=== PATIENT | female | born 1990 | race Caucasian/White ===

== ENCOUNTER 2016-07-31 19:44 | Inpatient (IN) | payer MEDICAID ==
[~2016-07-31] VITALS: Ht 162.6 cm; Wt 88.0 kg
[~2016-07-31 19:44] MED LIST: ACYC400T PO; AMOX500C PO; PREN1CAP7 PO; RANI150T PO
[2016-07-31] MEDS ORDERED: LACTATED RINGER'S 1000 ML INJ 1,000 ML IV PRN (20:41)
--- NOTE | 2016-07-31 20:41 | PD ---
HPI Chief Complaint evaluation for labor Date Seen: Jul 31, 2016 Time Seen: 20:30 Travel History International Travel<30 Days: No Contact w/Intl Traveler<30Days: No Known Affected Area: No History of Present Illness HPI This is a 25y/o at 40w3d who presents to the [facility] for evaluation of labor. Pt states she was 5cm dilated in the office and has been ambulating since. She denies vaginal bleeding or leakage of fluid with reports of active movements. care at [facility], complicated by: 1. h/o drug abuse, clean for 4 years 2. Hep C, no viral load noted in records, labs done at [facility] per pt, will draw today on admission 3. GBS + 4. h/o genital herpes, last outbreak in last on Acyclovir since 36w 5. ? low platelets, at 28w no value seen in record but it was check serially, cbc on admission Para: 1 : 2 History Past Medical History Narrative Medical H/o IV drug abuse H/o hepatitis C H/o genital herpes Obstetric History Obstetric History 04/09/14 39w 7lb3oz Male, epidural "Bart" Past Surgical History Surgical History: No Previous Surgery Family History Family History: Negative Social History Alcohol Use: No Tobacco Use: No Substance Abuse: Yes (in the past, clean for 4 years) Allergies-Medications (Allergen,Severity, Reaction): Coded Allergies: No Known Allergies (Unverified , 07/31/16) Home Meds Active Scripts Acyclovir 400 Mg [id number] Mg PO BID #60 TAB Ref 4 Prov:Mary Tse 06/26/16 Ranitidine 150 Mg [id number] Mg PO BID #60 TAB Ref 6 Prov:Mary Tse 05/11/16 Reported Medications W/O Vit A W/ Fe Fumar (Citranatal [place])27-1-260 Mg Cap1 Cap PO DAILY #30 CAP Ref 0 03/16/16 Discontinued Scripts Amoxicillin 500 Mg [id number] Mg PO TID #21 CAP Ref 0 Prov:Moises Iraheta MD 07/17/16 Review of Systems Except as stated in HPI: all other systems reviewed are Neg Physical Exam Narrative GENERAL: Well-nourished, well-developed patient. SKIN: Warm and dry. HEAD: Normocephalic and atraumatic. EYES: No scleral icterus. No injection or drainage. ENT: No nasal drainage noted. Mucous membranes pink. Airway patent. NECK: Supple, trachea midline. No JVD. CARDIOVASCULAR: Regular rate and rhythm without murmurs, gallops, or rubs. RESPIRATORY: Breath sounds equal bilaterally. No accessory muscle use. BREASTS: Bilateral exam showed no masses , no retractions, no nipple discharge. ABDOMEN/GI: Abdomen soft, non-tender, bowel sounds present, no rebound, no guarding GENITOURINARY: VE: 5+cm, bulging bag, per RN FHT's: Overall Cat I tracing, 1 late deceleration, 2 m in duration to nicole of 80bpm with quick recovery to baseline spontaneously Cont: some irritability EXTREMITIES: No cyanosis or edema. BACK: Nontender without obvious deformity. No CVA tenderness. NEUROLOGICAL: Awake and alert. Motor and sensory grossly within normal limits. Five out of 5 muscle strength in all muscle groups. Normal speech. Data Data Vital Signs Reviewed: Yes [facility] Medical Record Reviewed: Yes Interpretation(s) care at [facility], complicated by: 1. h/o drug abuse, clean for 4 years 2. Hep C, no viral load noted in records, labs done at [facility] per pt, will draw today on admission 3. GBS + 4. h/o genital herpes, last outbreak in last on Acyclovir since 36w 5. ? low platelets, at 28w no value seen in record but it was check serially, cbc on admission Procedure Narrative VE: 5+cm, bulging bag, per RN FHT's: Overall Cat I tracing, 1 late deceleration, 2 m in duration to nicole of 80bpm with quick recovery to baseline spontaneously Cont: some irritability Diagnosis Diagnosis: Primary Impression: Hx of herpes simplex type 2 infection Additional Impression: Chronic hepatitis C affecting antepartum care of mother Qualified Code: O98.413 - Chronic hepatitis C affecting antepartum care of mother, third trimester Condition: Good Montserrat Ivan MD Jul 31, 2016 20:41
[2016-07-31] MEDS ORDERED: OXYTOCIN 30 UNITS-500ML PREMIX 500 ML IV ONE (20:45)
[2016-07-31] MEDS ORDERED: PENICILLIN G POTASSIUM INJ 5,000,000 UNITS in SODIUM CHLORIDE 0.9% INJ 100 ML IV ONE (20:45)
[2016-07-31] MEDS ORDERED: MINERAL OIL 10 ML VIAL TOPICAL PRN (20:45)
[2016-07-31] MEDS ORDERED: SODIUM CHLORID 0.9% 500 ML INJ 500 ML IV PRN (20:45)
[2016-07-31] MEDS ORDERED: LIDOCAINE HCL 1% 50 ML VIAL INFIL PRN (20:45)
[2016-07-31] MEDS ORDERED: CITRIC ACID-SODIUM CITRATE LIQ 30 ML UDC PO SCH (20:45)
[2016-07-31] MEDS ORDERED: LIDOCAINE HCL 1% 50 ML VIAL I-DERMAL PRN (20:45)
--- NOTE | 2016-07-31 20:53 | HHI.HP ---
HPI Chief Complaint Evaluation of labor Date Seen: Jul 31, 2016 Time Seen: 20:47 Travel History International Travel<30 Days: No Contact w/Intl Traveler<30Days: No Known Affected Area: No History of Present Illness HPI This is a 25y/o at 40w3d who presents to the [facility] for evaluation of labor. Pt states she was 5cm dilated in the office and has been ambulating since. She denies vaginal bleeding or leakage of fluid with reports of active movements. care at [facility], complicated by: 1. h/o drug abuse, clean for 4 years 2. Hep C, no viral load noted in records, labs done at [facility] per pt, will draw today on admission 3. GBS + 4. h/o genital herpes, last outbreak in last on Acyclovir since 36w 5. ? low platelets, at 28w no value seen in record but it was check serially, cbc on admission Para: 1 : 2 History Past Medical History Narrative Medical H/o Iv drug abuse, clean for 4 years, was told she was Hep C positive H/o genital herpes, last outbreak in her last Obstetric History Obstetric History 04/09/14 39w 7lb3oz Male, epidural "Bart" Past Surgical History Surgical History: No Previous Surgery Family History Family History: Negative Social History Alcohol Use: No Tobacco Use: No Substance Abuse: Yes (h/o, clean for 4 years) Allergies-Medications (Allergen,Severity, Reaction): Coded Allergies: No Known Allergies (Unverified , 07/31/16) Home Meds Active Scripts Acyclovir 400 Mg [id number] Mg PO BID #60 TAB Ref 4 Prov:Mary Tse 06/26/16 Ranitidine 150 Mg [id number] Mg PO BID #60 TAB Ref 6 Prov:Mary TseP 05/11/16 Reported Medications W/O Vit A W/ Fe Fumar (Citranatal [place])27-1-260 Mg Cap1 Cap PO DAILY #30 CAP Ref 0 03/16/16 Discontinued Scripts Amoxicillin 500 Mg [id number] Mg PO TID #21 CAP Ref 0 Prov:Moises Iraheta MD 07/17/16 Review of Systems Except as stated in HPI: all other systems reviewed are Neg Physical Exam Narrative GENERAL: Well-nourished, well-developed patient. SKIN: Warm and dry. HEAD: Normocephalic and atraumatic. EYES: No scleral icterus. No injection or drainage. ENT: No nasal drainage noted. Mucous membranes pink. Airway patent. NECK: Supple, trachea midline. No JVD. CARDIOVASCULAR: Regular rate and rhythm without murmurs, gallops, or rubs. RESPIRATORY: Breath sounds equal bilaterally. No accessory muscle use. BREASTS: Bilateral exam showed no masses , no retractions, no nipple discharge. ABD: soft, nt/nd, gravid VE: 5+cm, bulging bag, per RN FHT's: Overall Cat I tracing, 1 late deceleration, 2 m in duration to nicole of 80bpm with quick recovery to baseline spontaneously Cont: some irritability EXTREMITIES: No cyanosis or edema. BACK: Nontender without obvious deformity. No CVA tenderness. NEUROLOGICAL: Awake and alert. Motor and sensory grossly within normal limits. Five out of 5 muscle strength in all muscle groups. Normal speech. Data Data Vital Signs Reviewed: Yes Orders Ob (2e) Additional Admit Info (07/31/16 20:43) Admit To Inpatient (07/31/16 ) Code Status (07/31/16 20:41) Vital Signs (Adult) .Per protocol (07/31/16 20:41) Activity Oob Ad Gila (07/31/16 20:41) ^ Heart (07/31/16 20:41) ^ Amnioinfusion (07/31/16 20:41) Urinary Catheter Management .ONCE (07/31/16 20:41) Diet Npo (08/01/16 Breakfast) Lactated Ringer's 1000 Ml Inj (Lr 1000 M (07/31/16 20:41) Lactated Ringer's 1000 Ml Inj (Lr 1000 M (07/31/16 20:41) Sodium Chlorid 0.9% 500 Ml Inj (Ns 500 M (07/31/16 20:45) Sodium Chlor 0.9% 1000 Ml Inj (Ns 1000 M (07/31/16 21:01) Lidocaine 1% Inj (50 Ml) (Xylocaine 1% I (07/31/16 20:45) Citric Acid-Sodium Citrate Liq (Bicitra (07/31/16 20:45) Fentanyl Inj (Fentanyl Inj) (07/31/16 20:45) Fentanyl Inj (Fentanyl Inj) (07/31/16 20:45) Penicillin G Potassium Inj (Pfizerpen-G (07/31/16 20:45) Penicillin G Potassium Inj (Pfizerpen-G (08/01/16 00:45) Complete Blood Count With Diff (07/31/16 20:41) Hold Clot (07/31/16 20:41) Abo/Rh Blood Type (07/31/16 20:41) Urinalysis - C+S If Indicated (07/31/16 20:41) Resp Oxygen Non Rebreathe Mask (07/31/16 ) ^ Epidural / Intrathecal Infus (07/31/16 20:41) Oxytocin 30 Units-500ml Premix (Pitocin (07/31/16 20:45) Lidocaine 1% Inj (50 Ml) (Xylocaine 1% I (07/31/16 20:45) Light Mineral Oil (Muri-Lube Oil) (07/31/16 20:45) Hepatitis C Ab,Igg (07/31/16 20:41) Hepatitis C Rna Quantitative (07/31/16 20:41) Ob/Psych Drug Screen, Urine (07/31/16 20:41) Inpatient Certification (07/31/16 ) Assessment/Plan Problem List: (1) Hx of herpes simplex type 2 infection (2) Chronic hepatitis C affecting antepartum care of mother Assessment and Plan 25y/o at 40w3d with favorable cervix and 1 late decelerations. -admit for augmentation of labor -GBS + for PCN per hospital protocol -overall reassuring fhr tracing -consider AROM after 2nd dosage of PCN -anticipate -epidural as desired Discharge Planning d/c home Attending Attestation I personally examined and admitted this patient. Montserrat Ivan MD Jul 31, 2016 20:53
[2016-07-31] MEDS ORDERED: SODIUM CHLOR 0.9% 1000 ML INJ 1,000 ML IV PRN (21:01)
[2016-07-31] MEDS: LACTATED RINGER'S 1000 ML INJ 1,000 ML IV SCH (21:45)
[2016-07-31 21:50] VITALS: BP 113/68; PULSE 75
[2016-07-31 21:56] VITALS: RESP 16
[2016-07-31 21:57] VITALS: TEMP 97.9
[2016-07-31 22:00] VITALS: BP 100/63; PULSE 71
[2016-07-31 22:19] LABS: AUTOMATED NEUTROPHIL # 6.5 TH/MM3 (1.8-7.7); BASOPHIL % 0.2 % (0.0-2.0); EOSINOPHIL # 0.1 TH/MM3 (0-0.4); EOSINOPHIL % 0.8 % (0.0-4.0); HEMATOCRIT 32.1 % (35.0-46.0); LYMPH % 23.9 % (9.0-44.0); LYMPHOCYTE # 2.2 TH/MM3 (1.0-4.8); MEAN CELL VOLUME 89.8 FL (80.0-100.0); MEAN CORPUSCULAR HEMOGLOBIN 31.2 PG (27.0-34.0); MEAN CORPUSCULAR HGB CONC 34.8 % (32.0-36.0); MONO % 4.8 % (0.0-8.0); NEUT % 70.3 % (16.0-70.0); PLATELET COUNT 88 TH/MM3 (150-450); RED BLOOD COUNT 3.57 MIL/MM3 (4.00-5.30); RED CELL DISTRIBUTION WIDTH 13.7 % (11.6-17.2); WHITE BLOOD COUNT 9.2 TH/MM3 (4.0-11.0)
[2016-07-31 22:21] LABS: HEMO FLAGS AUTO DIFF
[2016-07-31 22:24] LABS: AMPHETAMINE, URINE NEG (NEG); BACTERIA, URINE RARE /hpf; BARBITURATES, URINE NEG (NEG); BLOOD, URINE LARGE (NEG); COCAINE, URINE NEG (NEG); COMMENT (UR) CULTURE INDICATED; CULTURE IF INDICATED CULTURE INDICATED; GLUCOSE,URINE NEG (NEG); HYALINE CAST, URINE 1 /lpf (RARE); KETONE, URINE NEG (NEG); NITRITE,URINE NEG (NEG); SQUAMOUS EPITHELIAL CELL URINE 8 /hpf (0-5); URINE COLOR YELLOW (YELLW/STRAW)
[2016-07-31 22:48] LABS: PLATELET ESTIMATE SMEAR LOW (NORMAL); PLATELET MORPHOLOGY GIANT (NORMAL)
[2016-07-31 22:49] LABS: SCAN/DIFF AUTO DIFF CONFIRMED
[2016-08-01] VITALS (19 sets, daily range): BP systolic 92–121; BP diastolic 49–79; PULSE 66–101; RESP 16–20; TEMP 97.7–98.3
[2016-08-01] MEDS: PENICILLIN G POTASSIUM INJ 2,500,000 UNITS in SODIUM CHLORIDE 0.9% INJ 100 ML IV SCH ×3 (02:15→09:59)
[2016-08-01] MEDS: LACTATED RINGER'S 1000 ML INJ 1,000 ML IV SCH (04:41)
--- NOTE | 2016-08-01 07:23 | PD.LABORPN ---
Subjective Subjective This is a 25y/o at 40w4d who was admitted last night for augmentation of labor due to advanced cervical change and a 2 minute late deceleration with nicole to 80bmp. On admission her platelet count was 88k stat labs repeated now. Hep C labs still pending from admission, will try to obtain from [facility]. Overnight pt received 2 doses of PCN. Tracing was reactive/reassuring Cat I with moderate variability with occasional decelerations about 2 minutes in duration with spontaneous recovery to baseline. care at [facility], complicated by: 1. h/o drug abuse, clean for 4 years, negative urine toxicology on admission 2. Hep C, no viral load noted in records, labs done at [facility] per pt, labs still pending from admission 3. GBS + 4. h/o genital herpes, last outbreak in last on Acyclovir since 36w 5. ? low platelets, at 28w no value seen in record but it was check serially, cbc on 28k Objective Vital Signs Vital Signs Date Time Temp Pulse Resp B/P Pulse Ox O2 Delivery O2 Flow Rate FiO2 08/01/16 07:13 66 17 121/79 08/01/16 07:12 98.1 08/01/16 05:51 16 08/01/16 05:50 72 105/54 08/01/16 05:50 97.9 08/01/16 02:00 97.7 08/01/16 00:46 76 107/55 Objective Pelvic Exam: VE: 6/70/-1, AROM Clear FHT's:Cat I reactive/reassuring, moderate variability with accels, few prolonged decelerations lasting 2 minutes with spontaneous recovery to baseline Assessment/Plan Problem List: (1) Hx of herpes simplex type 2 infection (2) Chronic hepatitis C affecting antepartum care of mother Assessment and Plan 25y/o at 40w4d admitted for augmentation of labor due to advanced cervical dilation and 2 minute deceleration. Care complicated by: 1,. h/o drug abuse, clean for 4 years, negative urine toxicology on admission 2. Hep C, no viral load noted in records, labs done at [facility] per pt, labs still pending from admission; will try to obtain labs from her PMD's office today 3. GBS +, s/p adequate treatment 4. h/o genital herpes, last outbreak in last on Acyclovir since 36w, no lesions on admission 5. thrombocytopenia, 88k on admission, repeat labs pending this morning Montserrat Ivan MD Aug 01, 2016 07:23
[2016-08-01 07:33] LABS: HEMATOCRIT 31.7 % (35.0-46.0); MEAN CELL VOLUME 90.8 FL (80.0-100.0); MEAN CORPUSCULAR HEMOGLOBIN 31.4 PG (27.0-34.0); MEAN CORPUSCULAR HGB CONC 34.6 % (32.0-36.0); PLATELET COUNT 72 TH/MM3 (150-450); RED CELL DISTRIBUTION WIDTH 13.6 % (11.6-17.2); WHITE BLOOD COUNT 9.1 TH/MM3 (4.0-11.0)
[2016-08-01 07:37] LABS: REVIEW FLAG FINAL
--- NOTE | 2016-08-01 09:37 | PD.LABORPN ---
Subjective Subjective Mrs. Macario was seen this morning; she reports increasing pressure with contractions overnight. Patient otherwise does not report complaints at this time. Interval History: Fetus with 2 min deceleration to 90 BPM at approximately 0600 08/01; given 500 cc bolus and placed in left lateral position. AROM at ~0700; clear fluid, odorless (Yared Yepez MD R2) Objective Vital Signs Vital Signs Date Time Temp Pulse Resp B/P Pulse Ox O2 Delivery O2 Flow Rate FiO2 08/01/16 08:30 74 114/70 08/01/16 07:13 66 17 121/79 08/01/16 07:12 98.1 08/01/16 05:51 16 08/01/16 05:50 72 105/54 08/01/16 05:50 97.9 08/01/16 02:00 97.7 Objective Pelvic Exam: Performed by nursing staff at 0908/01 Cervix: Dilatation: 8 cm Effacement: 90% Station: 0 Presentation: Vertex Membranes: ruptured Uterine Contractions: q2min FHT's: Category: 1 -2 Baseline: 120 Reactive: Y Variability: Mod Decels: Occ decels lasting ~2 min (Yared Yepez MD R2) Assessment/Plan Problem List: (1) Hx of herpes simplex type 2 infection (2) Chronic hepatitis C affecting antepartum care of mother Assessment and Plan 25y/o at 40w4d admitted for augmentation of labor due to advanced cervical dilation and 2 minute deceleration. Care complicated by: 1,. h/o drug abuse, clean for 4 years, negative urine toxicology on admission 2. Hep C, no viral load noted in records, labs done at [facility] per pt, labs still pending from admission; will try to obtain labs from her PMD's office 3. GBS + 4. h/o genital herpes, last outbreak in last on Acyclovir since 36w, no lesions on admission 5. thrombocytopenia, 88k on admission -> 72k (08/01) Cervix at 0915: 8/90/0 -Continue to monitor EFM -Continue GBS PPX (Yared Yepez MD R2) Assessment and Plan Agree with resident note. Continue expectant management. consider oxytocin. Anticipate . (Montserrat Ivan MD) Yared Yepez MD R2 Aug 01, 2016 09:37 Montserrat Ivan MD Aug 01, 2016 09:40
[2016-08-01] MEDS ORDERED: OXYTOCIN 30 UNITS-500ML PREMIX 500 ML ONE (10:06)
[2016-08-01] MEDS ORDERED: DOCUSATE SODIUM 50 MG/SENNA 8.6 MG TAB PO PRN (12:30)
[2016-08-01] MEDS ORDERED: ZOLPIDEM TARTRATE 5 MG TAB PO PRN (12:30)
[2016-08-01] MEDS ORDERED: oxyCODONE/ACETAMINOPHEN 5 MG/325 MG TAB PO PRN ×2 (12:30)
[2016-08-01] MEDS ORDERED: SODIUM CHLORIDE 0.9% FLUSH 10 ML FLUSH IV FLUSH PRN (12:30)
[2016-08-01] MEDS ORDERED: BENZOCAINE 20% TOPICAL SPRAY 60 ML CAN TOPICAL PRN (12:30)
[2016-08-01] MEDS ORDERED: ACETAMINOPHEN 325 MG TAB PO PRN (12:30)
[2016-08-01] MEDS ORDERED: ONDANSETRON ODT 4 MG TAB PO PRN (12:30)
[2016-08-01] MEDS ORDERED: WITCH HAZEL 50%/GLYCERIN 12.5% 40 PAD JAR TOPICAL PRN (12:30)
[2016-08-01] MEDS ORDERED: ALUMINUM/MAGNESIUM/SIMETH 30 ML CUP PO PRN (12:30)
--- NOTE | 2016-08-01 12:32 | PD.OB.DELI ---
Delivery Date: Aug 01, 2016 Anesthesia: None Episiotomy: None Vaginal Delivery: Spontaneous Presentation: Occiput anterior Nuchal Cord: None Delayed cord clamping (45 sec): Yes : Male One Minute : 8 Five Minute : 9 Weight: 3965 Care: Suctioned, Responded to stimulation, Blow-by O2 delivered Placenta: Spontaneous delivery Laceration: 1 deg (2 3-0 vicryl sutures placed perineal ) Repair: Vicryl interrupted Additional Information Time of delivery 1202 Delivery performed by Remington Tinoco with Dr. Kunz Repair by Dr. Yepez (Yared Yepez MD R2) Collaborating MD Zora Delivery was performed under my direct supervision (Columba Kunz MD) Yared Yepez MD R2 Aug 01, 2016 12:32 Columba Kunz MD Aug 01, 2016 13:19
[2016-08-01] MEDS: IBUPROFEN 600 MG TAB PO PRN ×2 (13:19→18:03)
[2016-08-01] MEDS ORDERED: MEASLES, MUMPS, RUBELLA VACCINE 0.5 ML VIAL SQ ONE (16:00)
[2016-08-01] MEDS ORDERED: DIPHTH/TETANUS/ACEL PERTUSSIS (BOOSTER) 0.5 ML VIAL/PFS IM ONE (16:00)
[2016-08-01] MEDS ORDERED: SODIUM CHLORIDE 0.9% FLUSH 10 ML FLUSH IV FLUSH SCH (21:00)
[2016-08-02] MEDS: IBUPROFEN 600 MG TAB PO PRN ×3 (00:53→18:23)
--- NOTE | 2016-08-02 08:02 | HHI.OB ---
Subjective Post Day: 1 Remarks Mrs. Macario is a 25 yo who is PPD 1 from (08/01 at 1202) Patient reports that she is doing well this morning. Patient reports light vaginal bleeding and mild abdominal pain. Patient reports mild soreness and urinating but denies dysuria. Patient reports that she has been breast-feeding well but has been bottle feeding as well. Patient able to ambulate. Patient passing gas but not having bowel movement. (Yared Yepez MD R2) Objective Vitals/I&O Vital Signs Date Time Temp Pulse Resp B/P Pulse Ox O2 Delivery O2 Flow Rate FiO2 08/01/16 21:14 98.3 74 20 106/59 08/01/16 16:20 98.3 69 16 110/64 08/01/16 13:31 67 105/59 08/01/16 13:16 73 100/54 08/01/16 13:00 66 109/62 08/01/16 13:00 18 08/01/16 12:45 18 08/01/16 12:45 72 108/60 08/01/16 12:30 98.1 08/01/16 12:30 101 92/51 08/01/16 12:30 18 08/01/16 12:15 84 110/60 08/01/16 12:06 89 118/49 08/01/16 11:30 97.8 08/01/16 10:50 18 08/01/16 10:36 89 102/58 08/01/16 09:30 97.8 08/01/16 08:30 74 114/70 Objective Remarks GENERAL: Well-nourished, well-developed patient. CARDIOVASCULAR: Regular rate and rhythm without murmurs. Normal perfusion RESPIRATORY: CTA B, normal rate ABDOMEN/GI: Abdomen soft, non-tender. Fundus: Firm, non-tender at umbilicus. GENITOURINARY: Light to moderate bleeding. EXTREMITIES: Symmetrical without edema; nontender Medications and IVs Current Medications Medications (Trade) Dose Ordered Sig/Chandrika Route Start Time Stop Time Status Last Admin (NS Flush) 2 ml BID IV FLUSH 08/01/16 21:00 08/01/16 13:44 (NS Flush) 2 ml UNSCH PRN IV FLUSH 08/01/16 12:30 (Tylenol) 650 mg Q4H PRN PO 08/01/16 12:30 (Motrin) 600 mg Q6H PRN PO 08/01/16 12:30 08/02/16 00:53 (Percocet 5-325 Mg) 1 tab Q4H PRN PO 08/01/16 12:30 (Percocet 5-325 Mg) 2 tab Q4H PRN PO 08/01/16 12:30 (Americaine 20% Top Spr) 1 spray Q4H PRN TOPICAL 08/01/16 12:30 08/01/16 18:02 (Tucks Pads) 1 applic QID PRN TOPICAL 08/01/16 12:30 08/01/16 18:02 (Pamela-Colace) 2 tab Q12H PRN PO 08/01/16 12:30 08/02/16 00:53 (Ambien) 5 mg HS PRN PO 08/01/16 12:30 (Mag-Al Plus Susp Liq) 15 ml Q8H PRN PO 08/01/16 12:30 (Zofran Odt) 4 mg Q6H PRN PO 08/01/16 12:30 (Yared Yepez MD R2) Assessment/Plan Problem List: (1) Hx of herpes simplex type 2 infection (2) Chronic hepatitis C affecting antepartum care of mother Assessment and Plan 25 yo who is PPD 1 from (08/01 at 1202) -Percocet and Motrin when necessary for pain control -Continue to monitor vital signs, quantity of vaginal bleeding, abdominal pain -Continue to encourage breast feeding -Continue to encourage ambulation -Stool softener for bowel movements -Discussed posthospital plans: Patient plans [facility] and we'll discuss control if desired further then Discharge Planning d/c home (Yared Yepez MD R2) Collaborating MD Comments Agree with management plans and continued care (Columba Kunz MD) Yared Yepez MD R2 Aug 02, 2016 08:02 Columba Kunz MD Aug 02, 2016 08:59
[2016-08-02 08:15] VITALS: BP 104/65; PULSE 61; RESP 18; TEMP 97.7
[2016-08-02 18:55] VITALS: BP 101/69; PULSE 62; RESP 18; TEMP 98.5
--- NOTE | 2016-08-03 07:39 | HHI.OB ---
Subjective Post Day: 2 Remarks AFVSS overnight. Doing well. Lochia - much reduced. She plans for both breast- feeding and formula. Appetite good. No nausea or vomiting. Positive flatus. No bowel movement. Ambulating well. Denies calf pain. No edema. Otherwise, she is doing well this morning and has no other complaints. Objective Vitals/I&O Vital Signs Date Time Temp Pulse Resp B/P Pulse Ox O2 Delivery O2 Flow Rate FiO2 08/02/16 18:55 62 18 101/69 08/02/16 18:55 98.5 08/02/16 08:15 61 104/65 08/02/16 08:15 97.7 18 Objective Remarks GENERAL: Well-nourished, well-developed patient. CARDIOVASCULAR: Regular rate and rhythm without murmurs. Normal perfusion RESPIRATORY: CTAB, normal rate ABDOMEN/GI: Abdomen soft, non-tender. Fundus: Firm, non-tender at umbilicus. GENITOURINARY: Light to moderate bleeding. EXTREMITIES: Symmetrical without edema; nontender Medications and IVs Current Medications Medications (Trade) Dose Ordered Sig/Chandrika Route Start Time Stop Time Status Last Admin (NS Flush) 2 ml BID IV FLUSH 08/01/16 21:00 08/01/16 13:44 (NS Flush) 2 ml UNSCH PRN IV FLUSH 08/01/16 12:30 (Tylenol) 650 mg Q4H PRN PO 08/01/16 12:30 (Motrin) 600 mg Q6H PRN PO 08/01/16 12:30 08/02/16 18:23 (Percocet 5-325 Mg) 1 tab Q4H PRN PO 08/01/16 12:30 (Percocet 5-325 Mg) 2 tab Q4H PRN PO 08/01/16 12:30 (Americaine 20% Top Spr) 1 spray Q4H PRN TOPICAL 08/01/16 12:30 08/01/16 18:02 (Tucks Pads) 1 applic QID PRN TOPICAL 08/01/16 12:30 08/01/16 18:02 (Pamela-Colace) 2 tab Q12H PRN PO 08/01/16 12:30 08/02/16 00:53 (Ambien) 5 mg HS PRN PO 08/01/16 12:30 (Mag-Al Plus Susp Liq) 15 ml Q8H PRN PO 08/01/16 12:30 (Zofran Odt) 4 mg Q6H PRN PO 08/01/16 12:30 Assessment/Plan Problem List: (1) Hx of herpes simplex type 2 infection (2) Chronic hepatitis C affecting antepartum care of mother Assessment and Plan 25 yo who is PPD 2 from (08/01 at 1202) -Percocet and Motrin when necessary for pain control -Continue to encourage breast feeding -Continue to encourage ambulation -Stool softener for bowel movements -Discussed posthospital plans: Patient plans [facility] -Brit control - Pt will continue OCPs that she gets from [facility] - they work well for her -Discussed with Dr. Gibbons Discharge Planning Discharge home today Negin Bird MD R1 Aug 03, 2016 07:39
[2016-08-03] MEDS ORDERED: IBUP-232 PO (07:40)
--- NOTE | 2016-08-03 07:42 | HHI.DCPOC ---
Discharge Care Plan Diagnosis: (1) Hx of herpes simplex type 2 infection (2) care and examination Report Symptoms to Your Doctor -Temperate above 100.5 degrees -Redness, of incision or excessive or foul smelling drainage -Unusual pain or calf pain -Increased vaginal bleeding -Painful or difficulty urinating -Feelings of extreme sadness or anxiety after 2 weeks Goals to Promote Your Health * To prevent worsening of your condition and complications * To maintain your health at the optimal level Directions to Meet Your Goals Take your medications as prescribed Follow your dietary instruction Follow activity as directed Ensure plenty of rest for recovery Drink fluids for hydration Keep your appointments as scheduled Take your immunizations and boosters as scheduled If your symptoms worsen call your PCP, if no PCP go to Urgent Care Center or Emergency Room Smoking is Dangerous to Your Health. Avoid second hand smoke Call the 24-hour crisis hotline for domestic abuse at Negin Bird MD R1 Aug 03, 2016 07:41
[2016-08-03 08:00] VITALS: BP 104/64; PULSE 62; RESP 18; TEMP 98.3
[2016-08-03] MEDS: IBUPROFEN 600 MG TAB PO PRN (09:58)
[2016-08-03 19:55] LABS: HCV RNA PCR IU/ML LESS THAN 15 IU/mL (()); HCV RNA PCR LOGIU/ML LESS THAN 1.18 (())
[2016-08-04 12:17] LABS: BATH SALTS (MDPV) UR NEG (NEG); ECSTASY (MDMA) UR NEG (NEG); HEROIN (6-ACETYLMORPHINE) UR NEG (NEG); K2 SPICE UR NEG (NEG); OBMETHADONE UR NEG (NEG); OXYCODONE (PERCODAN) NEG (NEG); PHENCYCLIDINE URINE NEG (NEG)
[2016-09-14] MEDS ORDERED: [UNRECOGNIZED DRUG - CODE] PO (09:36)
[2016-10-10] MEDS ORDERED: METR500T10 PO (15:19)
[2016-10-20] MEDS ORDERED: CITA20TA4 PO (10:15)
[2016-10-23] MEDS ORDERED: VIST25CA PO (13:37)
[2016-10-23] MEDS ORDERED: PREN1CAP7 PO (13:37)
== END 2016-08-03 13:00 | disposition home or self-care (01) | DRG 774 ==
LOC: HOBED 19:44 → H2EA 20:44 → H1EA 08-01 15:13
PROVIDERS: ADMIT Obstetrics & Gynecology; ATTEND Obstetrics & Gynecology
PROC: 10E0XZZ Delivery of Products of Conception, External Approach (ICD-10-PCS; principal; 2016-08-01)
PROC: 0HQ9XZZ Repair Perineum Skin, External Approach (ICD-10-PCS; 2016-08-01)
PROC: 10907ZC Drainage of Amniotic Fluid, Therapeutic from Products of Conception, Via Natural or Artificial Opening (ICD-10-PCS; 2016-08-01)
DX: O98.42 Viral hepatitis complicating childbirth (principal); B18.2 Chronic viral hepatitis C; O99.12 Other diseases of the blood and blood-forming organs and certain disorders involving the immune mechanism complicating childbirth; D69.6 Thrombocytopenia, unspecified; O99.824 Streptococcus B carrier state complicating childbirth; O76 Abnormality in fetal heart rate and rhythm complicating labor and delivery; O70.0 First degree perineal laceration during delivery; Z37.0 Single live birth; Z3A.40 40 weeks gestation of pregnancy
CPT/HCPCS: 59025; 80307; 81001; 85025; 85027; 86803; 86900; 86901; 87086; 87522; 90715; 99285; G0481; J2540; J2590; J3010; J7120

== ENCOUNTER 2016-08-15 16:23 | Emergency (ER) | payer MEDICAID ==
[~2016-08-15] VITALS: Ht 162.6 cm; Wt 78.0 kg
[~2016-08-15 16:23] MED LIST changes: -AMOX500C PO; +IBUP-232 PO
[2016-08-15 16:25] VITALS: BP 114/74; PULSE 60; RESP 16; TEMP 98.8; O2SAT 100
--- NOTE | 2016-08-15 16:38 | PD ---
Physical Exam Time Seen by Provider: 16:35 Narrative 25 year old female presents to ED for evaluation of LLQ abdominal pain. Pt is 2 weeks post vaginal delivery. No N/V/D. Normal voids without burning, frequency, or urgency. No fever or chills. Pain is constant dull, with intermittent sharp stabbing pains. Echo Milner follows her outpatient at [facility]. Dr. Kunz delivered her baby. She states she is otherwise well. Data Data Last Documented VS Vital Signs Date Time Temp Pulse Resp B/P Pulse Ox O2 Delivery O2 Flow Rate FiO2 08/15/16 16:25 98.8 60 16 114/74 100 Room Air [facility] Medical Record Reviewed: Yes Supervised Visit with AFSHAN: No Narrative Course 25 year old female presents to ED for evaluation of LLQ abdominal pain. Appears without distress. VSS Condition: Stable Raysa Rincon Aug 15, 2016 16:38
--- NOTE | 2016-08-15 17:21 | PD ---
HPI Chief Complaint: Abdominal Pain Time Seen by Provider: 17:20 Travel History International Travel<30 days: No Contact w/Intl Traveler<30days: No Traveled to known affect area: No History of Present Illness HPI Patient 25-year-old female 2 weeks from standard vaginal delivery presents with sharp suprapubic and left lower quadrant sharp abdominal pain particularly when she sits upright. Patient states pain started approximately week ago and has been gradually worsening. Patient denies any dysuria. She does endorse some nausea as well as some mild diarrhea. States it did burn at the end of her urine stream recently. Denies any fever. States her lochia is gradually decreasing and she does not express any foul smell. She has not yet discussed with her [employer]. [facility] Social History Alcohol Use: No Tobacco Use: No Allergies-Medications (Allergen,Severity, Reaction): Coded Allergies: No Known Allergies (Unverified , 08/15/16) Reported Meds & Prescriptions Reported Meds & Active Scripts Active Ibuprofen 600 Mg Tab 600 Mg PO Q6H PRN Acyclovir 400 Mg Tab 400 Mg PO BID Ranitidine (Ranitidine HCl) 150 Mg Tab 150 Mg PO BID Reported Citranatal [place] ( W/O Vit A W/ Fe Fumar) 27-1-260 Mg Cap 1 Cap PO DAILY Review of Systems Except as stated in HPI: all other systems reviewed are Neg Physical Exam Narrative GENERAL: Well-developed well-nourished no apparent distress. SKIN: Focused skin assessment warm/dry. HEAD: Atraumatic. Normocephalic. EYES: Pupils equal and round. No scleral icterus. No injection or drainage. ENT: No nasal bleeding or discharge. Mucous membranes pink and moist. NECK: Trachea midline. No JVD. CARDIOVASCULAR: Regular rate and rhythm. No murmur appreciated. RESPIRATORY: No accessory muscle use. Clear to auscultation. Breath sounds equal bilaterally. GASTROINTESTINAL: Abdomen soft, non-tender, nondistended. Hepatic and splenic margins not palpable. GENITOURINARY: Minimal amount of lochia, very minimal uterine tenderness, no adnexal tenderness. No vaginal bleeding. MUSCULOSKELETAL: No obvious deformities. No clubbing. No cyanosis. No edema. NEUROLOGICAL: Awake and alert. No obvious cranial nerve deficits. Motor grossly within normal limits. Normal speech. PSYCHIATRIC: Appropriate mood and affect; insight and judgment normal. Data Data Last Documented VS Vital Signs Date Time Temp Pulse Resp B/P Pulse Ox O2 Delivery O2 Flow Rate FiO2 08/15/16 18:30 99 Room Air 08/15/16 16:25 98.8 60 16 114/74 Orders Complete Blood Count With Diff (08/15/16 17:57) Comprehensive Metabolic Panel (08/15/16 17:57) Prothrombin Time / Inr (Pt) (08/15/16 17:57) Act Partial Throm Time (Ptt) (08/15/16 17:57) Urinalysis - C+S If Indicated (08/15/16 17:57) Iv Access Insert/Monitor (08/15/16 17:57) Ecg Monitoring (08/15/16 17:57) Oximetry (08/15/16 17:57) Sodium Chlor 0.9% 1000 Ml Inj (Ns 1000 M (08/15/16 17:57) Sodium Chloride 0.9% Flush (Ns Flush) (08/15/16 18:00) Ketorolac Inj (Toradol Inj) (08/15/16 18:00) Gc And Chlamydia Pcr (08/15/16 17:57) Wet Prep Profile (08/15/16 17:57) Labs Laboratory Tests Test 08/15/16 08/15/16 08/15/16 15:20 18:15 21:05 White Blood Count 8.0 TH/MM3 Red Blood Count 4.23 MIL/MM3 Hemoglobin 13.3 GM/DL Hematocrit 38.8 % Mean Corpuscular Volume 91.8 FL Mean Corpuscular Hemoglobin 31.4 PG Mean Corpuscular Hemoglobin 34.3 % Concent Red Cell Distribution Width 13.3 % Platelet Count 153 TH/MM3 Mean Platelet Volume 9.1 FL Neutrophils (%) (Auto) 56.3 % Lymphocytes (%) (Auto) 35.8 % Monocytes (%) (Auto) 4.9 % Eosinophils (%) (Auto) 2.4 % Basophils (%) (Auto) 0.6 % Neutrophils # (Auto) 4.5 TH/MM3 Lymphocytes # (Auto) 2.9 TH/MM3 Monocytes # (Auto) 0.4 TH/MM3 Eosinophils # (Auto) 0.2 TH/MM3 Basophils # (Auto) 0.0 TH/MM3 CBC Comment DIFF FINAL Differential Comment Prothrombin Time 10.5 SEC Prothromb Time International 1.0 RATIO Ratio Activated Partial 27.1 SEC Thromboplast Time Sodium Level 142 MEQ/L Potassium Level 4.3 MEQ/L Chloride Level 105 MEQ/L Carbon Dioxide Level 28.7 MEQ/L Anion Gap 8 MEQ/L Blood Urea Nitrogen 16 MG/DL Creatinine 1.03 MG/DL Estimat Glomerular Filtration 65 ML/MIN Rate Random Glucose 90 MG/DL Calcium Level 8.5 MG/DL Total Bilirubin 0.3 MG/DL Aspartate Amino Transf 27 U/L (AST/SGOT) Alanine Aminotransferase 34 U/L (ALT/SGPT) Alkaline Phosphatase 104 U/L Total Protein 6.6 GM/DL Albumin 3.2 GM/DL Urine Color YELLOW Urine Turbidity CLEAR Urine pH 5.5 Urine Specific [place] 1.021 Urine Protein NEG mg/dL Urine Glucose (UA) NEG mg/dL Urine Ketones NEG mg/dL Urine Occult Blood TRACE Urine Nitrite NEG Urine Bilirubin NEG Urine Urobilinogen LESS THAN 2.0 MG/DL Urine Leukocyte Esterase SMALL Urine RBC LESS THAN 1 /hpf Urine WBC 2 /hpf Urine Squamous Epithelial 1 /hpf Cells Urine Mucus FEW /lpf Microscopic Urinalysis Comment CULT NOT INDICATED Clue Cells (Wet Prep) NONE SEEN Vaginal Trichomonas (Wet Prep) NONE SEEN Vaginal Yeast (Wet Prep) NONE SEEN Chlamydia trachomatis DNA NOT DETECTED (PCR) Neisseria gonorrhoeae DNA NOT DETECTED (PCR) MDM Medical Decision Making Medical Screen Exam Complete: Yes Emergency Medical Condition: Yes Differential Diagnosis Endometritis unlikely, postdelivery pain, ovarian torsion unlikely, urinary tract infection. Narrative Course Patient was roomed in the emergency department, she appears quite well and in no apparent distress. Her abdomen is completely benign and she sits up and down the stretcher without difficulty. There are no peritoneal signs. Her basic labs are obtained and showed no abnormality including CBC and CMP. UA negative and wet prep negative. Discussed with the patient I have very low index suspicion for acute surgical abdomen. I have offered her a CAT scan but I think that the risks of radiation exposure outweigh any potential diagnostic benefits at this time. She is agreeable this time. She would like to go home and follow up with her [employer]. I have no objections to that. Diagnosis Primary Impression: Pelvic pain Disposition: DISCHARGE HOME Condition: Stable Kev Tanner MD Aug 15, 2016 17:21
[2016-08-15] MEDS ORDERED: SODIUM CHLOR 0.9% 1000 ML INJ 1,000 ML IV SCH (17:57)
[2016-08-15] MEDS ORDERED: KETOROLAC TROMETHAMINE 30 MG/ML (IVP) VIAL IVP ONE (18:00)
[2016-08-15] MEDS ORDERED: SODIUM CHLORIDE 0.9% FLUSH 10 ML FLUSH IV FLUSH PRN (18:00)
[2016-08-15 18:30] VITALS: O2SAT 99
[2016-08-15 18:42] LABS: AUTOMATED NEUTROPHIL # 4.5 TH/MM3 (1.8-7.7); BASOPHIL % 0.6 % (0.0-2.0); EOSINOPHIL # 0.2 TH/MM3 (0-0.4); EOSINOPHIL % 2.4 % (0.0-4.0); HEMATOCRIT 38.8 % (35.0-46.0); HEMO FLAGS DIFF FINAL; LYMPH % 35.8 % (9.0-44.0); LYMPHOCYTE # 2.9 TH/MM3 (1.0-4.8); MEAN CELL VOLUME 91.8 FL (80.0-100.0); MEAN CORPUSCULAR HEMOGLOBIN 31.4 PG (27.0-34.0); MEAN CORPUSCULAR HGB CONC 34.3 % (32.0-36.0); MONO % 4.9 % (0.0-8.0); NEUT % 56.3 % (16.0-70.0); PLATELET COUNT 153 TH/MM3 (150-450); RED BLOOD COUNT 4.23 MIL/MM3 (4.00-5.30); RED CELL DISTRIBUTION WIDTH 13.3 % (11.6-17.2)
[2016-08-15 18:46] LABS: BLOOD, URINE TRACE (NEG); COMMENT (UR) CULT NOT INDICATED; CULTURE IF INDICATED CULT NOT INDICATED; GLUCOSE,URINE NEG (NEG); KETONE, URINE NEG (NEG); MUCUS URINE FEW /lpf (OCC); NITRITE,URINE NEG (NEG); PH, URINE 5.5 (5.0-8.5); SQUAMOUS EPITHELIAL CELL URINE 1 /hpf (0-5); URINE COLOR YELLOW (YELLW/STRAW)
[2016-08-15 18:52] LABS: APTT (PATIENT) 27.1 SEC (24.3-30.1); PROTHROMBIN TIME - PATIENT 10.5 SEC (9.8-11.6)
[2016-08-15 19:05] LABS: ALKALINE PHOSPHATASE 104 U/L (45-117); ALT (GPT) 34 U/L (10-53); ANION GAP 8 MEQ/L (5-15); AST (GOT) 27 U/L (15-37); BICARBONATE 28.7 MEQ/L (21.0-32.0); BLOOD UREA NITROGEN 16 MG/DL (7-18); CHLORIDE 105 MEQ/L (98-107); GLOMERULAR FILTRATION RATE 65 ML/MIN (>89); SODIUM (NA) 142 MEQ/L (136-145); TOTAL BILIRUBIN ADULT 0.3 MG/DL (0.2-1.0)
[2016-08-15 19:06] LABS: POTASSIUM 4.3 MEQ/L (3.5-5.1)
[2016-08-16 00:13] LABS: CHLAMYDIA PCR NOT DETECTED (NOT DETECT); NEISSERIA PCR NOT DETECTED (NOT DETECT)
[2016-09-14] MEDS ORDERED: [UNRECOGNIZED DRUG - CODE] PO (09:36)
[2016-10-10] MEDS ORDERED: METR500T10 PO (15:19)
[2016-10-20] MEDS ORDERED: CITA20TA4 PO (10:15)
[2016-10-23] MEDS ORDERED: PREN1CAP7 PO (13:37)
[2016-10-23] MEDS ORDERED: VIST25CA PO (13:37)
== END 2016-08-15 22:02 | disposition home or self-care (01) ==
LOC: NEPD 16:23
DX: O90.89 Other complications of the puerperium, not elsewhere classified (principal); R10.2 Pelvic and perineal pain
CPT/HCPCS: 80053; 81001; 85025; 85610; 85730; 87210; 87491; 87591; 96361; 96374; 99284; J1885; J7030